=== PATIENT | male | born 1970 | race Asian ===

== ENCOUNTER 2016-10-04 07:40 | Emergency (ER) | payer MEDICAID ==
[~2016-10-04] VITALS: Ht 177.8 cm; Wt 110.0 kg
[2016-10-04 07:42] VITALS: BP 122/75
[2016-10-04] MEDS ORDERED: AZITHROMYCIN 500 MG TABLET PO ONE (08:30)
[2016-10-04] MEDS ORDERED: CEFTRIAXONE 250 MG IM ONE (08:30)
[2016-10-04] MEDS ORDERED: AZITHROMYCIN 250 MG TABLET ONE (08:32)
[2016-10-04] MEDS ORDERED: LIDOCAINE 1%, 20ML ONE (08:32)
[2016-10-04] MEDS ORDERED: CEFTRIAXONE 250 MG ONE (08:32)
== END 2016-10-04 08:43 | disposition home or self-care (01) ==
LOC: ED 08:30
DX: J20.8 Acute bronchitis due to other specified organisms (principal); B96.89 Other specified bacterial agents as the cause of diseases classified elsewhere
CPT/HCPCS: 96372; 99283; J0696